=== PATIENT | female | born 1950 | race Caucasian/White ===

== ENCOUNTER 2018-08-24 03:26 | Inpatient (IN) | payer OTHER ==
[~2018-08-24] VITALS: Ht 162.6 cm; Wt 93.9 kg
[2018-08-24 03:42] VITALS: Ht 162.6 cm; Wt 93.9 kg
[2018-08-24 04:43] LABS: ALBUMIN 2.4 g/dL (3.4-5.0); ALKALINE PHOSPHATASE 75 U/L (46-116); ALT/SGPT 13 U/L (14-59); AST/SGOT 19 U/L (15-37); BILIRUBIN TOTAL 0.26 mg/dL (0.20-1.00); CALCIUM 8.5 mg/dL (8.5-10.1); CARBON DIOXIDE 29.7 mmol/L (21-32); CHLORIDE SERUM 102 mmol/L (98-107); CHOLESTEROL 225 mg/dL (<200); CREATININE SERUM 1.4 mg/dL (0.6-1.0); FREE T4 0.99 ng/dL (0.76-1.46); GFR1 40 mL/min; GLUCOSE SERUM 160 mg/dL (74-106); SODIUM SERUM 142 mmol/L (136-145); TOTAL PROTEIN, SERUM 7.2 g/dL (6.4-8.2)
[2018-08-24 04:44] LABS: POTASSIUM SERUM 2.6 mmol/L (3.5-5.1)
[2018-08-24 04:49] LABS: BASOPHIL % 0.3 % (0-2); PLATELET COUNT 377 x10^3mcL (130-400); RED CELL DISTRIBUTION WIDTH 14.5 % (11.5-14.5)
[2018-08-24 08:02] LABS: MAGNESIUM 1.8 mg/dL (1.8-2.4); PHOSPHOROUS 2.6 mg/dL (2.5-4.9)
[2018-08-24 08:05] LABS: CHOLESTEROL/HDL RATIO 6.9
[2018-08-24 10:28] LABS: microscopic required? YES; urine erythrocyte TRACE (NEGATIVE)
[2018-08-24 10:49] LABS: AMPHETAMINE QUAL UR NONE DETECTED (See below)
[2018-08-24 15:04] VITALS: BP 148/52
[2018-08-24 17:31] VITALS: BP 185/85
[2018-08-24 18:20] VITALS: BP 171/51
[2018-08-24 20:27] VITALS: BP 140/89
[2018-08-24 22:39] LABS: CALCIUM 7.9 mg/dL (8.5-10.1); CARBON DIOXIDE 28.7 mmol/L (21-32); CREATININE SERUM 1.3 mg/dL (0.6-1.0)
[2018-08-25 06:21] VITALS: BP 165/53
[2018-08-25 06:30] LABS: BASOPHIL % 0.5 % (0-2); PLATELET COUNT 295 x10^3mcL (130-400); RED CELL DISTRIBUTION WIDTH 14.5 % (11.5-14.5)
[2018-08-25 06:35] LABS: CALCIUM 7.5 mg/dL (8.5-10.1); CARBON DIOXIDE 27.9 mmol/L (21-32); CREATININE SERUM 1.4 mg/dL (0.6-1.0)
[2018-08-25 07:17] VITALS: BP 170/63
[2018-08-25 07:26] LABS: POTASSIUM SERUM 2.9 mmol/L (3.5-5.1)
[2018-08-25 07:51] VITALS: BP 181/63
[2018-08-25 10:34] VITALS: BP 167/57
[2018-08-25 20:11] VITALS: BP 191/63
[2018-08-25 22:21] VITALS: BP 176/58
[2018-08-26 05:55] VITALS: BP 192/60
[2018-08-26 06:32] LABS: CALCIUM 7.7 mg/dL (8.5-10.1); CARBON DIOXIDE 29.5 mmol/L (21-32); CREATININE SERUM 1.2 mg/dL (0.6-1.0); POTASSIUM SERUM 3.2 mmol/L (3.5-5.1)
[2018-08-26 07:19] LABS: RED CELL DISTRIBUTION WIDTH 13.5 % (11.5-14.5)
[2018-08-26 07:20] LABS: PLATELET COUNT 273 x10^3mcL (130-400)
[2018-08-26 07:22] LABS: BASOPHIL % 0 % (0-2)
[2018-08-26 10:27] VITALS: BP 145/58
[2018-08-26 13:50] VITALS: BP 167/63
[2018-08-26 16:08] VITALS: BP 156/74
[2018-08-26 20:55] VITALS: BP 166/61
[2018-08-27 06:01] VITALS: BP 168/57
[2018-08-27 06:28] LABS: CALCIUM 7.8 mg/dL (8.5-10.1); CARBON DIOXIDE 25.7 mmol/L (21-32); CREATININE SERUM 1.2 mg/dL (0.6-1.0); POTASSIUM SERUM 3.4 mmol/L (3.5-5.1)
[2018-08-27 06:50] LABS: BASOPHIL % 0.3 % (0-2); PLATELET COUNT 245 x10^3mcL (130-400); RED CELL DISTRIBUTION WIDTH 14.3 % (11.5-14.5)
[2018-08-27 07:04] VITALS: BP 180/71
[2018-08-27 13:37] VITALS: BP 163/71
[2018-08-27 18:10] LABS: UA SPECIFIC GRAVITY 1.025 (1.005-1.035); microscopic required? YES; urine erythrocyte 2+ (NEGATIVE)
[2018-08-27 18:30] VITALS: BP 171/64
[2018-08-27 20:49] VITALS: BP 160/65
[2018-08-28 05:38] VITALS: BP 168/64
[2018-08-28 06:35] LABS: BASOPHIL % 0.4 % (0-2); PLATELET COUNT 244 x10^3mcL (130-400); RED CELL DISTRIBUTION WIDTH 14.1 % (11.5-14.5)
[2018-08-28 07:06] LABS: CALCIUM 7.8 mg/dL (8.5-10.1); CARBON DIOXIDE 24.2 mmol/L (21-32); CREATININE SERUM 1.1 mg/dL (0.6-1.0); POTASSIUM SERUM 3.7 mmol/L (3.5-5.1)
[2018-08-28 08:57] VITALS: BP 149/52
[2018-08-28 13:40] VITALS: BP 160/68
[2018-08-28 16:50] VITALS: BP 181/76
[2018-08-28 17:45] VITALS: BP 141/59
[2018-08-28 21:06] VITALS: BP 151/61
[2018-08-29 05:25] VITALS: BP 156/60
[2018-08-29 07:31] LABS: CALCIUM 8.1 mg/dL (8.5-10.1); CARBON DIOXIDE 26.2 mmol/L (21-32); POTASSIUM SERUM 3.5 mmol/L (3.5-5.1)
[2018-08-29 07:41] LABS: BASOPHIL % 0.2 % (0-2); PLATELET COUNT 264 x10^3mcL (130-400); RED CELL DISTRIBUTION WIDTH 14.2 % (11.5-14.5)
[2018-08-29 08:44] VITALS: BP 118/52
[2018-08-29 17:00] VITALS: BP 175/55
[2018-08-29 20:49] VITALS: BP 159/64
[2018-08-30 05:21] VITALS: BP 152/64
[2018-08-30 09:01] LABS: CALCIUM 8.2 mg/dL (8.5-10.1); CARBON DIOXIDE 27.7 mmol/L (21-32); POTASSIUM SERUM 4.5 mmol/L (3.5-5.1)
[2018-08-30 09:02] LABS: BASOPHIL % 0.4 % (0-2); PLATELET COUNT 303 x10^3mcL (130-400); RED CELL DISTRIBUTION WIDTH 14.2 % (11.5-14.5)
[2018-08-30 09:07] VITALS: BP 142/63
[2018-08-30] MEDS ORDERED: LEVAQUIN750 MG PO (11:01)
[2018-08-30 11:08] VITALS: BP 142/63
== END 2018-08-30 11:37 | disposition home or self-care (01) | DRG 640 ==
LOC: ED 03:26 → DU 06:49 → MU 08-28 17:03
PROVIDERS: Emergency Medicine; Family Medicine; ADMIT Internal Medicine
DX: E86.0 Dehydration (principal); N17.0 Acute kidney failure with tubular necrosis; E43 Unspecified severe protein-calorie malnutrition; G93.41 Metabolic encephalopathy; N39.0 Urinary tract infection, site not specified; Z68.41 Body mass index [BMI] 40.0-44.9, adult; E87.6 Hypokalemia; E87.2 Acidosis; E11.65 Type 2 diabetes mellitus with hyperglycemia; I16.0 Hypertensive urgency; E02 Subclinical iodine-deficiency hypothyroidism; R80.9 Proteinuria, unspecified; H54.8 Legal blindness, as defined in USA; S09.90XA Unspecified injury of head, initial encounter; Z79.84 Long term (current) use of oral hypoglycemic drugs; W18.39XA Other fall on same level, initial encounter; Y93.89 Activity, other specified; Y92.012 Bathroom of single-family (private) house as the place of occurrence of the external cause
CPT/HCPCS: 82962; 83880; 84439; 97110-GP; 97112-GP; 97116-GP; 97530-GP; G0480; J0360; J0696; J2060; J2185; J3475; J3480; J7030; Q0092

== ENCOUNTER 2019-01-06 17:46 | Inpatient (IN) | payer OTHER ==
[~2019-01-06] VITALS: Ht 162.6 cm; Wt 95.3 kg
[~2019-01-06 17:46] MED LIST: LEVAQUIN750 MG PO
[2019-01-06 19:29] LABS: BASOPHIL % 0.7 % (0-2); PLATELET COUNT 302 x10^3mcL (130-400); RED CELL DISTRIBUTION WIDTH 16.1 % (11.5-14.5)
[2019-01-06 19:38] LABS: CALCIUM 8.1 mg/dL (8.5-10.1); CREATININE SERUM 1.1 mg/dL (0.6-1.0)
[2019-01-06 19:45] LABS: BILIRUBIN TOTAL 0.2 mg/dL (0.20-1.00); TOTAL PROTEIN, SERUM 6.4 g/dL (6.4-8.2)
[2019-01-06 19:46] LABS: ALBUMIN 2.1 g/dL (3.4-5.0)
[2019-01-06 20:45] LABS: microscopic required? YES; urine erythrocyte 1+ (NEGATIVE)
[2019-01-06 20:54] LABS: CHOLESTEROL/HDL RATIO 3.1; PHOSPHOROUS 4.3 mg/dL (2.5-4.9)
[2019-01-06 21:04] LABS: FREE T4 1.09 ng/dL (0.76-1.46); FREE THYROXINE INDEX 2.5 ug/dL (1.4-4.5); T4(THYROXINE) 6.6 ug/dL (4.7-13.3)
[2019-01-06 21:23] LABS: T3 TOTAL 1.19 ng/mL
[2019-01-06 22:21] VITALS: BP 185/75
[2019-01-07] MEDS ORDERED: TRESIBA FL100 UNIT/1 SQ (00:15)
[2019-01-07 06:07] VITALS: BP 163/80
[2019-01-07 06:09] LABS: BASOPHIL % 0.3 % (0-2); CALCIUM 8.4 mg/dL (8.5-10.1); CARBON DIOXIDE 26.3 mmol/L (21-32); CREATININE SERUM 1.1 mg/dL (0.6-1.0); PLATELET COUNT 279 x10^3mcL (130-400); POTASSIUM SERUM 4.3 mmol/L (3.5-5.1)
[2019-01-07 06:43] LABS: RED CELL DISTRIBUTION WIDTH 15.8 % (11.5-14.5)
[2019-01-07 09:17] VITALS: BP 127/48
[2019-01-07 10:11] VITALS: BP 185/72
[2019-01-07 14:45] VITALS: BP 176/78
[2019-01-07 18:45] VITALS: BP 200/60
[2019-01-07 20:34] VITALS: BP 140/75; BP 157/67
[2019-01-07 23:22] VITALS: Ht 162.6 cm; Wt 95.3 kg
[2019-01-08 08:55] LABS: BASOPHIL % 1.1 % (0-2); PLATELET COUNT 294 x10^3mcL (130-400)
[2019-01-08 08:57] LABS: CALCIUM 8.1 mg/dL (8.5-10.1); CARBON DIOXIDE 24.9 mmol/L (21-32); CREATININE SERUM 1.1 mg/dL (0.6-1.0); POTASSIUM SERUM 4.6 mmol/L (3.5-5.1)
[2019-01-08 08:58] LABS: RED CELL DISTRIBUTION WIDTH 15.8 % (11.5-14.5)
[2019-01-08 17:00] VITALS: BP 147/87
[2019-01-08 20:36] VITALS: BP 170/66
[2019-01-09 05:50] VITALS: BP 212/83
[2019-01-09 06:44] LABS: BASOPHIL % 0.5 % (0-2); PLATELET COUNT 304 x10^3mcL (130-400)
[2019-01-09 06:56] LABS: CALCIUM 8.8 mg/dL (8.5-10.1); CARBON DIOXIDE 28.3 mmol/L (21-32); CREATININE SERUM 1.2 mg/dL (0.6-1.0); POTASSIUM SERUM 5.2 mmol/L (3.5-5.1)
[2019-01-09 07:21] LABS: RED CELL DISTRIBUTION WIDTH 15.8 % (11.5-14.5)
[2019-01-09 08:39] VITALS: BP 180/80
[2019-01-09 12:15] VITALS: BP 150/60
[2019-01-09 18:10] VITALS: BP 190/78
[2019-01-09 18:45] VITALS: BP 191/68
[2019-01-09 19:47] VITALS: BP 170/61
[2019-01-10 06:08] VITALS: BP 142/61
[2019-01-10 06:51] LABS: BASOPHIL % 0.4 % (0-2); PLATELET COUNT 276 x10^3mcL (130-400)
[2019-01-10 07:37] LABS: RED CELL DISTRIBUTION WIDTH 15.7 % (11.5-14.5)
[2019-01-10 07:52] LABS: CALCIUM 8.5 mg/dL (8.5-10.1); CARBON DIOXIDE 22.5 mmol/L (21-32); CREATININE SERUM 1.2 mg/dL (0.6-1.0); POTASSIUM SERUM 4.3 mmol/L (3.5-5.1)
[2019-01-10] MEDS ORDERED: ZESTRIL5 MG PO (08:20)
[2019-01-10] MEDS ORDERED: COR6 PO (08:20)
[2019-01-10] MEDS ORDERED: KEFLEX500 M1 PO (08:20)
[2019-01-10 11:52] VITALS: BP 142/61
[2019-01-10 12:51] VITALS: BP 160/68
== END 2019-01-10 15:18 | disposition home or self-care (01) | DRG 602 ==
LOC: ED 17:46 → MU 20:28
PROVIDERS: Emergency Medicine; ADMIT Internal Medicine
DX: L03.115 Cellulitis of right lower limb (principal); N17.0 Acute kidney failure with tubular necrosis; E43 Unspecified severe protein-calorie malnutrition; I42.9 Cardiomyopathy, unspecified; I31.3 Pericardial effusion (noninflammatory); L97.411 Non-pressure chronic ulcer of right heel and midfoot limited to breakdown of skin; E11.621 Type 2 diabetes mellitus with foot ulcer; I16.0 Hypertensive urgency; I11.9 Hypertensive heart disease without heart failure; L30.8 Other specified dermatitis; I87.2 Venous insufficiency (chronic) (peripheral); D64.9 Anemia, unspecified; E11.9 Type 2 diabetes mellitus without complications; H54.8 Legal blindness, as defined in USA; E03.9 Hypothyroidism, unspecified; Z68.34 Body mass index [BMI] 34.0-34.9, adult; Z79.84 Long term (current) use of oral hypoglycemic drugs
CPT/HCPCS: 82962; 83880; 84439; G0378; J1644; J1815; J2543; J3370; J3490; J7050; Q0092